=== PATIENT | male | born 1990 | race Caucasian/White ===

== ENCOUNTER 2018-11-03 13:27 | Emergency (ER) | payer MEDICAID ==
[~2018-11-03] VITALS: Ht 170.2 cm; Wt 70.3 kg
[~2018-11-03 13:27] MED LIST: BENA5TAB7 PO; CARB200T1 PO; DIVA250T PO; INSU100S5 IJ; NOVN SUBQ; PHEN100C3 PO
[2018-11-03 13:45] VITALS: BP 137/80
[2018-11-03] MEDS ORDERED: NACL 0.9% 1,000 ML IV SCH (14:14)
[2018-11-03 14:48] LABS: BASOPHILS # (AUTO) 0.1 K/uL (0.00-0.22); BASOPHILS % (AUTO) 1.5 % (0.0-2.0); EOSINOPHILS # (AUTO) 0.1 K/uL (0-0.4); EOSINOPHILS % (AUTO) 1.1 % (0.0-4.0); HEMATOCRIT 41.5 % (36-52); HEMOGLOBIN 14.3 g/dL (12.0-18.0); LYMPHOCYTES # (AUTO) 1.6 K/uL (2.0-11.5); LYMPHOCYTES % (AUTO) 33.2 % (20.5-51.1); MEAN CORPUSCULAR HEMOGLOBIN 30 pg (27-31); MEAN CORPUSCULAR HGB CONC 34 g/dL (33-37); MONOCYTES # (AUTO) 0.6 K/uL (0.8-1.0); MONOCYTES % (AUTO) 12.7 % (1.7-9.3); NEUTROPHILS # (AUTO) 2.4 K/uL (1.8-7.7); NEUTROPHILS % (AUTO) 51.5 % (42.2-75.2); PLATELET COUNT (AUTO) 286 K/uL (140-450); RED BLOOD CELL COUNT(AUTO) 4.77 MIL/uL (4.20-6.10); RED CELL DISTRIBUTION WIDTH 12.7 % (11.6-13.7); WHITE BLOOD COUNT (AUTO) 4.7 K/uL (4.8-10.8)
[2018-11-03 15:01] LABS: ANION GAP 11.7 (8-16); CHLORIDE 103 mmol/L (98-107); CREATININE 0.7 mg/dL (0.7-1.3); GFR ARICAN-AMERICAN 173 mL/min (>90); GLUCOSE 63 mg/dL (74-106); POTASSIUM 3.7 mmol/L (3.5-5.1); SODIUM SERUM 141 mmol/L (136-145); UREA NITROGEN, BLOOD 10 mg/dL (7-18)
[2018-11-03 15:06] LABS: PROTHROMBIN TIME 10.2 secs (10.8-13.4)
[2018-11-03 15:07] LABS: ALBUMIN 3.5 g/dL (3.4-5.0); AMYLASE 60 U/L (25-115); ASPARTATE AMINOTRANSFERASE 17 U/L (15-37); LIPASE 85 U/L (73-393); MAGNESIUM 1.6 mg/dL (1.8-2.4); TOTAL BILIRUBIN 0.2 mg/dL (0.0-1.0)
[2018-11-03 15:23] LABS: PHENYTOIN (DILANTIN) 4.8 ug/ml (10.0-20.0)
--- NOTE | 2018-11-03 16:10 | NUR ---
28 Y MALE BIB DAD WITH C/O SEIZURE. PER DAD, SEIZURE LASTED APPROX. 3 MIN, DAD STATES PT WAS SITTING IN THE PASSENGER SEAT AND BEGAN JERKING. ORAL TRAUMA NOTED TO PT TOUNGE. PT HAS A HX OF EPILEPSY. FSBS 91. PT NOW SITS UPRIGHT IN BED, FULLY AWAKE AND ALERT. FULL AND COMPLETE SPEECH. NO COMPLAINTS AT THIS TIME. BED IS DOWN, LOCKED, BED RAIL X 2, SEIZURE PRECAUTIONS IN PLACE. HX: EPILEPSY, DM TYPE 1, DVT 2017 RX: XARELTO, LACOSAMIDE, DIVALPROEX, APTIOM, PHENTOIN, NPH INSULIN AND INSULIN R
--- NOTE | 2018-11-03 16:11 | NUR ---
neuro intact. pupils janae 3 mm. memory intact. 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 facial symmetry. pt [id number].
--- NOTE | 2018-11-03 16:13 | NUR ---
pt used urinal at bedside. urine collected
--- NOTE | 2018-11-03 16:24 | NUR ---
22 gauge inserted into pts l hand. pt tolerated well. pt [id number]. vss at this time.
[2018-11-03 16:43] LABS: APPEARANCE,URINE CLEAR (CLEAR); BILIRUBIN,URINE NEGATIVE (NEGATIVE); BLOOD, URINE NEGATIVE (NEGATIVE); COLOR,URINE YELLOW (YELLOW); LEUKOCYTE ESTERASE ,URINE NEGATIVE (NEGATIVE); NITRITE, URINE NEGATIVE (NEGATIVE); PH,URINE 7.5 (5.0-9.0); UGLUCOSE TRACE (NEGATIVE)
[2018-11-03 16:49] LABS: BARBITURATE, URINE NEG. ng/ml (NEG <=200); BENZODIAZEPINE, URINE NEG. ng/mL (NEG <=200); CANNABINOID, URINE POS. ng/mL (NEG <=50); COCAINE, URINE NEG. ng/mL (NEG <=300); OPIATE, URINE NEG. ng/mL (NEG <=2000); PHENCYCLIDINE SCREEN,URINE NEG. ng/mL (NEG <=25)
--- NOTE | 2018-11-03 17:16 | NUR ---
WITNESSED SEIZURE BY YOANNA GONZALEZ AND MAYRA MARIE. APPROX 2 MIN TONIC CLONIC.
[2018-11-03] MEDS ORDERED: LORazepam 2 MG/ML VIAL IVP ONE ×2 (17:20→18:45)
--- NOTE | 2018-11-03 17:20 | NUR ---
PT COMBATIVE AFTER SEIZURE. CONFUSED, AGITATED, FIGHTING CARE, IV PULLED OUT.
--- NOTE | 2018-11-03 17:21 | NUR ---
4 POINT VELCO WRIST AND ANKLE RESTRAINTS APPLIED TO PATIENT. PATIENT CONTINUES TO BE COMBATIVE, RESTLESS, PULLED OUT IV. PT IS YELLING AND IS CONFUSED AT THIS TIME. CANT STATE WHERE HE IS OR HIS NAME. ATTEMPTING TO BITE NURSE.
[2018-11-03] MEDS ORDERED: MIDAZOLAM 2 MG/2 ML VIAL IM ONE (17:30)
[2018-11-03] MEDS ORDERED: LORazepam 2 MG/ML VIAL ONE (17:30)
--- NOTE | 2018-11-03 17:50 | NUR ---
FATHER PACING IN ER LOBBY. ASKED TO STAY IN LOBBY UNTIL PT IS CALM. FATHER PUSHES HIS WAY BACK TO SEE HIS SON.
[2018-11-03] MEDS ORDERED: MAG SULF 2000 MG/WATER PREMIX 50 ML IV ONE (17:55)
[2018-11-03] MEDS ORDERED: levETIRAcetam 1,000 MG in NACL 0.9% 100 ML IV ONE (17:55)
--- NOTE | 2018-11-03 17:55 | NUR ---
pts father continues to yell at fellow nurses. robinson is raised. aggravated behavior. called security Addendum: 11/03/18 at 1928 by [email or web address] VOICE IS RAISED
--- NOTE | 2018-11-03 18:04 | NUR ---
security present. father storms off in anger. states he does not want his son admitted. states this hospital is awful.
--- NOTE | 2018-11-03 18:05 | NUR ---
PT CALM AT THIS TIME. SLEEPING IN BED. ALL RESTRAINTS REMOVED FROM PATIENTS WRISTS AND ANKLES. PT NO LONGER COMBATIVE.
--- NOTE | 2018-11-03 18:11 | NUR ---
hospital returns. father banging on hospital door and yelling in er lobby. lola called to speak with pts father
--- NOTE | 2018-11-03 18:18 | NUR ---
lola bedside speaking with father
--- NOTE | 2018-11-03 18:19 | NUR ---
dr leonard at bedside
[2018-11-03] MEDS ORDERED: PHENYTOIN 1,000 MG in NACL 0.9% 100 ML IV ONE (18:20)
--- NOTE | 2018-11-03 18:23 | NUR ---
pt arousable but drowsy. pt arousable to shaking. can recall his name. rooming house operator states its okay for patient to take his home medications given by father.
--- NOTE | 2018-11-03 18:34 | NUR ---
per dr order, continue to give ordered medications even though father administered pts seizure medications. pts father bedside. father refusing medication and states that he already gave his son his po medications. wishes to speak with dr leonard
[2018-11-03] MEDS ORDERED: HYDROcodone/APAP 5/325 MG 1 TAB TAB PO ONE (18:45)
--- NOTE | 2018-11-03 18:45 | NUR ---
DR BOWERS AT BEDSIDE
[2018-11-03] MEDS ORDERED: levETIRAcetam 100 MG/ML VIAL IV ONE (19:06)
--- NOTE | 2018-11-03 19:11 | NUR ---
FATHER STATES HE ONLY WANTS PATIENT TO BE ON DILANTIN AND NORCO. NO OTHER MEDICATIONS TO BE ADMINISTERED PER PTS FATHER. PT AROUSABLE TO SHAKING.
[2018-11-03] MEDS ORDERED: PHENYTOIN 250 MG/5 ML VIAL IV ONE (19:15)
--- NOTE | 2018-11-03 19:19 | NUR ---
REPORT GIVEN TO ASHLIE MARIE
--- NOTE | 2018-11-03 19:20 | NUR ---
Hieu mobley in [facility] - 11/04/18 at 0020 by SHAKIR ASSUMED CARE OF PT
--- NOTE | 2018-11-03 19:20 | NUR ---
ASSUMED CARE OF PT. VSS.
--- NOTE | 2018-11-03 19:20 | NUR ---
PT IN BED, RESTING EYES OPEN. ALERT AND ORIENTED TO NAME, PERSON, PLACE, TIME. C/O NAUSEA AT THIS TIME. FATHER AT BEDSIDE. DR. DIEZ AT BEDSIDE EVALUATED. VSS.
[2018-11-03] MEDS ORDERED: RIVA15TA1 PO (19:31)
[2018-11-03] MEDS ORDERED: ESLI800T PO (19:32)
[2018-11-03] MEDS ORDERED: LACO150T PO (19:32)
--- NOTE | 2018-11-03 19:36 | NUR ---
Dr. Randall examining patient.
[2018-11-03] MEDS ORDERED: ONDANSETRON 4 MG/2 ML VIAL ONE (19:38)
[2018-11-03] MEDS ORDERED: ONDANSETRON 4 MG/2 ML VIAL IVP ONE (19:55)
--- NOTE | 2018-11-03 20:00 | NUR ---
PT IN BED RESTING, NO LONGER C/O OF NAUSEA. STATES PAIN RELIEF 08/10. REPOSITIONED FOR COMFORT. SEIZURE PRECAUTIONS IN PLACE. VSS. WILL CONTINUE TO MONITOR.
--- NOTE | 2018-11-03 21:04 | NUR ---
PT RESTING IN BED COMFORTABLY, WITH EYES CLOSED. VSS. WILL CONTINUE TO MONITOR.
--- NOTE | 2018-11-03 21:30 | NUR ---
PT AWAKE AND ALERT. PT STATED "I AM FEELING ALOT BETTER NOW." WILL CONTINUE TO MONITOR.
--- NOTE | 2018-11-03 21:42 | NUR ---
PT AMBULATED TO BATHROOM. AWAKE, ALERT. NO N/V. SISTER CAME TO VISIT AND DROPPED OFF PT CELLPHONE.
--- NOTE | 2018-11-03 21:42 | NUR ---
Hieu mobley in ED - 11/04/18 at 0016 by SHAKIR PT IS AMBULATORY AWAKE, ALERT. NO N/V. SISTER CAME TO VISIT AND DROPPED OFF PT CELLPHONE.
[2018-11-03] MEDS ORDERED: VALPROATE SODIUM 500 MG in NACL 0.9% 100 ML IV ONE (21:55)
[2018-11-03] MEDS ORDERED: VALPROATE SODIUM 500 MG/5 ML VIAL IV ONE (22:09)
--- NOTE | 2018-11-03 23:48 | NUR ---
CALLED [facility] TO GIVE REPORT FOR TRANSFER. NURSE IS ON BREAK AT THIS MOMENT. GAVE CALL BACK NUMBER.
--- NOTE | 2018-11-04 00:11 | NUR ---
SPOKE TO GUY MARIE AT [facility]. REPORT GIVEN. ETA FOR TRANSPORT 30 MIN. CONTINUE TO MONITOR.
--- NOTE | 2018-11-04 02:04 | NUR ---
[facility] TRANSPORT AT BEDSIDE
--- NOTE | 2018-11-04 02:09 | NUR ---
PT TAKEN BY SHAUN TO [facility] ROOM 263B
--- NOTE | 2018-11-04 02:10 | NUR ---
REPORT GIVEN TO [facility] TRANSPORT. PT VSS FOR TRANSPORT. PT ALERT AND ORIENTED TO NAME, PERSON, PLACE, TIME. ABLE TO AMBULATE TO AND FROM RESTROOM WITH STEADY GAIT. PT IS CALM AND ABLE TO ANSWER QUESTIONS APPROPRIATELY. PT TRANSFER TO [facility].
[2018-11-04 02:16] VITALS: BP 105/58
== END 2018-11-04 02:09 | disposition short-term general hospital (02) ==
LOC: MED 13:27
DX: G40.901 Epilepsy, unspecified, not intractable, with status epilepticus (principal); F12.10 Cannabis abuse, uncomplicated; E86.0 Dehydration; E11.9 Type 2 diabetes mellitus without complications; K21.9 Gastro-esophageal reflux disease without esophagitis; I10 Essential (primary) hypertension; Z79.01 Long term (current) use of anticoagulants; Z79.4 Long term (current) use of insulin; Z79.899 Other long term (current) drug therapy
CPT/HCPCS: 36415; 70450; 71045; 80053; 80173; 80185; 80299; 80305; 81003; 82150; 82948; 83690; 83735; 84484; 85025; 85379; 85610; 93005; 96365; 96366; 96367; 96372; 96375; 99284; G0482; J1165; J1953; J2060; J2250; J2405; J3475; J3490; J7030; 96368

== ENCOUNTER 2019-05-09 12:52 | Emergency (ER) | payer MEDICAID ==
[~2019-05-09] VITALS: Ht 175.3 cm; Wt 74.8 kg
[~2019-05-09 12:52] MED LIST changes: -BENA5TAB7 PO; -CARB200T1 PO; +ESLI800T PO; +LACO150T PO; +RIVA15TA1 PO
--- NOTE | 2019-05-09 13:07 | NUR ---
PATIENT AMBULATED WITH STEADY GAIT TO BED 6.
[2019-05-09 13:20] VITALS: BP 133/51
[2019-05-09] MEDS ORDERED: NACL 0.9% 1,000 ML IV ONE ×2 (13:25→14:40)
[2019-05-09 14:21] LABS: BASOPHILS % (AUTO) 0.9 % (0.0-2.0); EOSINOPHILS % (AUTO) 0.4 % (0.0-4.0); HEMATOCRIT 45.6 % (36-52); HEMOGLOBIN 15.2 g/dL (12.0-18.0); LYMPHOCYTES % (AUTO) 18.9 % (20.5-51.1); MEAN CORPUSCULAR HEMOGLOBIN 30 pg (27-31); MEAN CORPUSCULAR HGB CONC 33 g/dL (33-37); MEAN CORPUSCULAR VOLUME 90.7 fL (80-94); MONOCYTES # (AUTO) 0.5 K/uL (0.8-1.0); MONOCYTES % (AUTO) 9.5 % (1.7-9.3); NEUTROPHILS # (AUTO) 3.7 K/uL (1.8-7.7); NEUTROPHILS % (AUTO) 70.3 % (42.2-75.2); PLATELET COUNT (AUTO) 296 K/uL (140-450); RED BLOOD CELL COUNT(AUTO) 5.03 MIL/uL (4.20-6.10); RED CELL DISTRIBUTION WIDTH 12.3 % (11.6-13.7); WHITE BLOOD COUNT (AUTO) 5.3 K/uL (4.8-10.8)
[2019-05-09 14:26] LABS: APPEARANCE,URINE CLEAR (CLEAR); BILIRUBIN,URINE NEGATIVE (NEGATIVE); BLOOD, URINE NEGATIVE (NEGATIVE); LEUKOCYTE ESTERASE ,URINE NEGATIVE (NEGATIVE); NITRITE, URINE NEGATIVE (NEGATIVE); PH,URINE 5.5 (5.0-9.0); UGLUCOSE 3+ (NEGATIVE)
--- NOTE | 2019-05-09 14:27 | NUR ---
C/O DIZZINESS, "FEELING FOGGY", POLYURIA, POLYDOPSIA, FEELING HOT & DRY. NO SOB REPORTED. RESPIRATIONS ARE EQUAL AND SYMMETRICAL. NO LABORED BREATHING NOTED. NO N/V/D NOTED. AAOX4. NO FEVER NOTED. PMH: EPILEPSY, DM2, HTN NKA Addendum: 05/09/19 at 1441 by [email or web address] C/O DIZZINESS, "FEELING FOGGY", POLYURIA, POLYDOPSIA, FEELING HOT & DRY. NO SOB REPORTED. RESPIRATIONS ARE EQUAL AND SYMMETRICAL. NO LABORED BREATHING NOTED. NO N/V/D NOTED. AAOX4. NO FEVER NOTED. PT CLAIMS TO NOT HAVE EATEN ANYTHING TODAY, LAST MEAL WAS YESTERDAY. LAST INSULIN ADMIN WAS THIS MORNING. PMH: EPILEPSY, DM2, HTN. NKA
[2019-05-09 14:31] LABS: COLOR,URINE STRAW (YELLOW)
[2019-05-09 14:42] LABS: ACETONE, SERUM NEGATIVE (NEGATIVE)
[2019-05-09 14:57] LABS: ALBUMIN 4.2 g/dL (3.4-5.0); ANION GAP 11.9 (8-16); ASPARTATE AMINOTRANSFERASE 13 U/L (15-37); CHLORIDE 93 mmol/L (98-107); CREATININE 1.2 mg/dL (0.7-1.3); GFR ARICAN-AMERICAN 93 mL/min (>90); LIPASE 169 U/L (73-393); POTASSIUM 4.9 mmol/L (3.5-5.1); SODIUM SERUM 128 mmol/L (136-145); TOTAL BILIRUBIN 0.6 mg/dL (0.0-1.0); UREA NITROGEN, BLOOD 21 mg/dL (7-18)
[2019-05-09 14:59] LABS: GLUCOSE 696 mg/dL (74-106)
[2019-05-09 15:44] VITALS: BP 123/65
--- NOTE | 2019-05-09 15:45 | NUR ---
Patient discharged with v/s stable. Written and verbal after care instructions given and explained. Patient alert, oriented and verbalized understanding of instructions. Ambulatory with steady gait. All questions addressed prior to discharge. ID band removed. Patient advised to follow up with PMD. Rx of HUMULIN R 100 UNITS given. Patient educated on indication of medication including possible reaction and side effects. Opportunity to ask questions provided and answered.
--- NOTE | 2019-05-18 12:09 | NUR ---
Late entry. Confirmed with RN that 0.9 NS IV completed at 1547
== END 2019-05-09 15:45 | disposition home or self-care (01) ==
LOC: MED 12:52
DX: E11.65 Type 2 diabetes mellitus with hyperglycemia (principal); R35.8 Other polyuria; R42 Dizziness and giddiness; R63.1 Polydipsia; K21.9 Gastro-esophageal reflux disease without esophagitis; I10 Essential (primary) hypertension; G40.909 Epilepsy, unspecified, not intractable, without status epilepticus; Z79.4 Long term (current) use of insulin; Z79.899 Other long term (current) drug therapy
CPT/HCPCS: 36415; 80053; 81003; 82009; 83690; 85025; 96360; 96361; 99283; J7030